=== PATIENT | female | born 1960 | race Caucasian/White ===

== ENCOUNTER 2019-01-17 15:39 | Emergency (ER) | payer BC ==
[~2019-01-17] VITALS: Ht 162.6 cm; Wt 100.0 kg
[2019-01-17 15:48] VITALS: BP 140/75
[2019-01-17] MEDS ORDERED: OXYcodone/APAP 5/325MG TABLET ONE (16:17)
[2019-01-17] MEDS ORDERED: OXYcodone/APAP 5/325MG TABLET PO ONE (16:30)
== END 2019-01-17 17:34 | disposition home or self-care (01) ==
LOC: ED 17:01
DX: M17.11 Unilateral primary osteoarthritis, right knee (principal); I10 Essential (primary) hypertension; F32.9 Major depressive disorder, single episode, unspecified; G43.909 Migraine, unspecified, not intractable, without status migrainosus; E78.5 Hyperlipidemia, unspecified
CPT/HCPCS: 29505; 99283